=== PATIENT | male | born 1945 | race Caucasian/White ===

== ENCOUNTER 2018-09-06 13:53 | Emergency (ER) | payer MEDICARE, BC, SELFPAY ==
[2018-09-06 13:53] VITALS: BP 149/90; PULSE 54; RESP 14; TEMP 36.7; O2SAT 99
--- NOTE | 2018-09-06 13:57 | DI.RAD.S_ITS ---
PROCEDURE: XR KNEE RT 1TO2V INDICATIONS: fall TECHNIQUE: 3 views of the knee were acquired. COMPARISON: None. FINDINGS: Bones: No fractures or dislocations. No suspicious bony lesions. Mild degenerative changes of the knee are present. Soft tissues: There may be a small knee joint effusion with intra-articular joint bodies. No suspicious soft tissue calcifications. IMPRESSION: No displaced right knee fractures. Dictated by: Wesley Castillo M.D. on 09/06/2018 at 13:29 Approved by: Wesley Castillo M.D. on 09/06/2018 at 13:29
--- NOTE | 2018-09-06 13:57 | DI.RAD.S_ITS ---
PROCEDURE: XR FEMUR RT MIN 2V INDICATIONS: fall TECHNIQUE: 2 views of the femur were acquired. COMPARISON: None. FINDINGS: Bones: No fractures or dislocations. No suspicious bony lesions. Degenerative changes of the knee and hip are present. Soft tissues: No suspicious soft tissue calcifications or masses. IMPRESSION: No acute fracture of the right femur. Dictated by: Wesley Castillo M.D. on 09/06/2018 at 13:26 Approved by: Wesley Castillo M.D. on 09/06/2018 at 13:27
--- NOTE | 2018-09-06 15:27 | ED_ITS ---
HPI - Extremity Injury (Lower) <KATHRYN Fernandez-BC - Last Filed: 09/06/18 19:20> General Chief Complaint: Extremity Injury, Lower Stated Complaint: leg injury Time Seen by Provider: 09/06/18 14:30 Source: patient, family and EMS Mode of arrival: EMS Limitations: no limitations History of Present Illness HPI Narrative: The patient is a 73-year-old male current some day smoker with bilateral knee surgeries who presents with a chief complaint of right leg pain. He states that he was squatting down in the engine room of his boat, when he fell over with his leg fully flexed and hit his thumb high on a pipe. He felt a snap in his thigh. He states that he is unable to move his knee as his leg feels incredibly weak. He has not taken anything for the pain. He does not want anything on my initial exam. He denies any fevers nausea vomiting or diarrhea. He states that he did not hit his head neck or back pain he denies hip pain as well. He states the pain is centered in the center of his thigh, radiating down to his knee. Related Data Previous Rx's Medication Instructions Recorded hydrocodone-acetaminophen [[place]] 1 tab PO Q4-6H PRN #10 tab 09/06/18 Allergies Allergy/AdvReac Type Severity Reaction Status Date / Time No Known Drug Allergies Allergy Verified 09/06/18 13:55 Review of Systems <YUSRA FernandezBC - Last Filed: 09/06/18 19:20> Review of Systems GENERAL: Denies chills, fatigue, malaise, fever, sweats. HEENT: Denies sinus pain, ear pain, sore throat, difficulty swallowing, dizziness. RESPIRATORY: Denies dyspnea, cough, wheezing, hemoptysis, sputum. CARDIOVASCULAR: Denies chest pain, palpitations, orthopnea, edema, GASTROINTESTINAL: Denies nausea, vomiting, abdominal pain, diarrhea, constipation, melena. : Denies dysuria, frequency, incontinence, hematuria, urinary retention. MUSCULOSKELETAL: See HPI SKIN: Denies rash, skin lesions, or other NEUROLOGIC: Denies weakness, headache, numbness, change in speech, confusion, seizures, incoordination. PSYCHIATRIC: No concerning psychosocial issues. 12 point review of systems is negative except for those stated above PFSH <JEREMIE Fernandez - Last Filed: 09/06/18 19:20> Surgical History (Updated 09/06/18 @ 19:17 by JEREMIE Fernandez) History of knee replacement (Acute) History of rotator cuff surgery (Acute) Social History Smoking Status: Current every day smoker Social History Smoking Status: Current every day smoker Exam <JEREMIE Fernandez - Last Filed: 09/06/18 19:20> Narrative Exam Narrative: GENERAL: This is a well-nourished, well-developed patient, no acute distress HEAD: Atraumatic. Normocephalic. No temporal or scalp tenderness. EYES: Pupils equal round and reactive. Extraocular motions intact. No scleral icterus. No injection or drainage. ENT: Nose without bleeding, purulent drainage or septal hematoma. Throat without erythema, tonsillar hypertrophy or exudate. Uvula midline. Airway patent. NECK: Trachea midline. No JVD or lymphadenopathy. Supple, nontender, no meningeal signs. CARDIOVASCULAR: Regular rate and rhythm without murmurs, gallops, or rubs. RESPIRATORY: Clear to auscultation. Breath sounds equal bilaterally. No wheezes, rales, or rhonchi. GASTROINTESTINAL: Abdomen soft, non-tender, nondistended. No hepato- splenomegaly, or palpable masses. No guarding. EXTREMITIES: Tenderness noted to general palpation of right femur and right knee. Positive pedal pulses bilaterally. No appreciated swelling right knee. No pain to palpation hips bilaterally. Pelvis is stable to palpation and rock. No pedal edema noted bilaterally. Patient is unable to extend right lower leg. He cannot hold his leg in the air due to pain just superior to knee. BACK: Nontender without deformity or crepitance. No flank tenderness. NEURO: AOx3. SKIN: No rash or erythema. No rash erythema or ecchymosis noted right leg Initial Vital Signs Initial Vital Signs: Vital Signs Temperature 98.1 F 09/06/18 13:53 Pulse Rate 54 L 09/06/18 13:53 Respiratory Rate 14 09/06/18 13:53 Blood Pressure 149/90 H 09/06/18 13:53 Pulse Oximetry 99 09/06/18 13:53 <Marcella Bingham DO - Last Filed: 09/07/18 19:51> Initial Vital Signs Initial Vital Signs: Vital Signs Temperature 98.1 F 09/06/18 13:53 Pulse Rate 54 L 09/06/18 13:53 Respiratory Rate 14 09/06/18 13:53 Blood Pressure 149/90 H 09/06/18 13:53 Pulse Oximetry 99 09/06/18 13:53 Procedures <JEREMIE Fernandez - Last Filed: 09/06/18 19:20> Orthopedic Splinting/Casting Injury #1: Side: right Lower Extremity Injury Location: knee Lower Extremity Immobilizer: knee immobilizer Other Orthopedic Equipment: crutches Post splinting neuro exam: intact Post splinting vascular exam: intact Placed by: Nursing Course <JEREMIE Fernandez - Last Filed: 09/06/18 19:20> Orders Ordered: Discontinued Medications Hydrocodone Bitart/Acetaminophen ([place] 5/325) 1 tab PO NOW ONE Stop: 09/06/18 15:24 Last Admin: 09/06/18 16:09 Dose: 1 tab Vital Signs - 8 hr 09/06/18 13:53 09/06/18 15:34 09/06/18 17:06 Temperature 98.1 F Pulse Rate 54 L 57 L 65 Respiratory Rate 14 16 16 Blood Pressure 149/90 H 118/79 Blood Pressure [Right Arm] 133/71 Pulse Oximetry 99 96 96 <Marcella Bingham DO - Last Filed: 09/07/18 19:51> Orders Ordered: Discontinued Medications Hydrocodone Bitart/Acetaminophen ([place] 5/325) 1 tab PO NOW ONE Stop: 09/06/18 15:24 Last Admin: 09/06/18 16:09 Dose: 1 tab Vital Signs - 8 hr 09/06/18 13:53 09/06/18 15:34 09/06/18 17:06 Temperature 98.1 F Pulse Rate 54 L 57 L 65 Respiratory Rate 14 16 16 Blood Pressure 149/90 H 118/79 Blood Pressure [Right Arm] 133/71 Pulse Oximetry 99 96 96 MDM - Extremity Injury (Lower) <JEREMIE Fernandez - Last Filed: 09/06/18 19:20> Imaging Data Femur x-ray: Radiologist's impression: [address] [address] XRay Report Signed Patient: Carrol Cadena#: [id number] : 7Acct:[id number] Age/Sex: 73 / MDate of Service: 09/06/18 Loc: ED Accession Number: [id number] Procedure: XR femur RT min 2V Ordering Provider: Marcella HanP-BC PROCEDURE: XR FEMUR RT MIN 2V INDICATIONS: fall TECHNIQUE: 2 views of the femur were acquired. COMPARISON: None. FINDINGS: Bones: No fractures or dislocations. No suspicious bony lesions. Degenerative changes of the knee and hip are present. Soft tissues: No suspicious soft tissue calcifications or masses. IMPRESSION: No acute fracture of the right femur. Dictated by: Wesley Castillo M.D. on 09/06/2018 at 13:26 Approved by: Wesley Castillo M.D. on 09/06/2018 at 13:27 Knee x-ray: Radiologist's impression: [address] [address] XRay Report Signed Patient: Carrol Cadena#: [id number] : 7Acct:[id number] Age/Sex: 73 / MDate of Service: 09/06/18 Loc: ED Accession Number: [id number] Procedure: XR knee RT 1to2V Ordering Provider: Marcella Han-ALFREDO PROCEDURE: XR KNEE RT 1TO2V INDICATIONS: fall TECHNIQUE: 3 views of the knee were acquired. COMPARISON: None. FINDINGS: Bones: No fractures or dislocations. No suspicious bony lesions. Mild degenerative changes of the knee are present. Soft tissues: There may be a small knee joint effusion with intra-articular joint bodies. No suspicious soft tissue calcifications. IMPRESSION: No displaced right knee fractures. Dictated by: Wesley Castillo M.D. on 09/06/2018 at 13:29 Approved by: Wesley Castillo M.D. on 09/06/2018 at 13:29 [facility] Narrative Medical decision making narrative: The patient is a 73-year-old male who presents with chief complaint of leg pain. He is neurovascularly intact with negative x-rays of his knee and femur. He denies any pelvic pain and declines x-rays of his hips. His exam is concerning for a quadriceps tendon rupture. I spoke with Dr. Julian, who suggested knee immobilizer as well as crutches. Patient was placed in knee immobilizer without incident. He felt much better after the knee immobilizer crutches as well as [place]. The patient is from out of the area, but I did give him contact information for [facility] for follow-up. Discussed rest ice compression elevation as well as pain medications as needed and able. Discussed that [place] can be constipating and sedating. Discussed going back to the ER for any acute concerns. Patient have no questions or concerns and state understanding of follow-up plan. Discharge Plan Departure Patient Disposition: Home Clinical Impression: Injury of quadriceps tendon Discharge Date/Time: 09/06/18 17:14 Interventions: ED Discharge Assessment Last Done: 09/06/18 17:06 Instructions: Quadriceps Strain, DI for Quadriceps Strain, How To Perform RICE (Rest, Ice, Compress, Elevate), How to Use a Knee Immobilizer Activity Restrictions/Additional Instructions: Your exam is concerning for quadriceps tendon injury. I have given you a prescription of pain medicine. This can be constipating and sedating. Please follow-up with [facility] or your home orthopedist. Please use rest ice compression elevation. Please come back to the ER for any acute concerns. Prescriptions: New hydrocodone-acetaminophen [[place]] 5-325 mg tablet 1 tab PO Q4-6H PRN (Reason: pain) Qty: 10 RF: 0 Referrals: [facility] [Provider Group] <Marcella Bingham DO - Last Filed: 09/07/18 19:51> Cosign ED Attending Coserickaature Attestation: I was immediately available in the department for consultation. This documentation has been reviewed and I agree with assessment and plan. Supervised by Marcella Bingham DO
[2018-09-06 15:34] VITALS: BP 133/71; PULSE 57; RESP 16; O2SAT 96
[2018-09-06] MEDS: HYDROCODONE/ACET 5/325 TABLET 1 TAB PO (16:09)
[2018-09-06 17:06] VITALS: BP 118/79; PULSE 65; RESP 16; O2SAT 96
== END 2018-09-06 17:14 | disposition home or self-care (01) ==
PROVIDERS: Emergency Provider Nurse Practitioner Family
DX: S76.101A Unspecified injury of right quadriceps muscle, fascia and tendon, initial encounter (principal); W19.XXXA Unspecified fall, initial encounter
CPT/HCPCS: 29505; 29530; 73552; 73560; 99282; 99283